=== PATIENT | female | born 1980 | race Caucasian/White ===

== ENCOUNTER → 2020-02-13 10:27 | Outpatient (CLI) | payer OTHER, SELFPAY ==
--- NOTE | ~2020-02-13 | MM_ITS ---
EXAMINATION: MM screening laura BI w andreea HISTORY: Screening mammogram TECHNIQUE: Craniocaudal and mediolateral oblique 3-D tomosynthesis images were obtained and synthetic 2-D images were generated. CAD analysis was submitted and interpreted. COMPARISON: No prior mammogram is available for comparison at this institution. BREAST PARENCHYMAL COMPOSITION: There are scattered areas of fibroglandular density. FINDINGS: There is no evidence of suspicious mass, calcification, or architectural distortion to sugg est malignancy in either breast. There has been no suspicious interval change. IMPRESSION: 1. No mammographic evidence of malignancy. 2. Recommend routine screening mammography in one year. BI-RADS Category 1: Negative Reviewed, dictated and finalized at location A.
== END ==
PROVIDERS: Visit Provider Nurse Practitioner
DX: Z12.31 Encounter for screening mammogram for malignant neoplasm of breast (principal)
CPT/HCPCS: 77063; 77067

== ENCOUNTER → 2021-02-16 17:18 | Outpatient (CLI) | payer OTHER, SELFPAY ==
--- NOTE | ~2021-02-16 | MM_ITS ---
EXAMINATION: MM screening laura BI w andreea HISTORY: Screening mammogram TECHNIQUE: Craniocaudal and mediolateral oblique 3-D tomosynthesis images were obtained and synthetic 2-D images were generated. CAD analysis was submitted and interpreted. COMPARISON: 02/13/2020 BREAST PARENCHYMAL COMPOSITION: There are scattered areas of fibroglandular density. FINDINGS: RIGHT BREAST: There is focal asymmetry in the middle third of the upper outer quadrant of the breast. LEFT BREAST: There is no evidence of suspicious mass, calcification, or architectural distortion to s uggest malignancy. There has been no significant interval change. IMPRESSION: 1. Focal asymmetry of the right breast. 2. Additional mammographic views and possible breast ultrasound are recommended. BI-RADS Category 0: Incomplete: Needs additional imaging evaluation. Reviewed, dictated and finalized at location A. IMPRESSION: 1. Focal asymmetry of the right breast. 2. Additional mammographic views and possible breast ultrasound are recommended . BI-RADS Category 0: Incomplete: Needs additional imaging evaluation.
== END ==
PROVIDERS: Visit Provider Nurse Practitioner
DX: Z12.31 Encounter for screening mammogram for malignant neoplasm of breast (principal); R92.8 Other abnormal and inconclusive findings on diagnostic imaging of breast
CPT/HCPCS: 77063; 77067

== ENCOUNTER → 2021-05-08 08:42 | Outpatient (CLI) | payer OTHER, SELFPAY ==
--- NOTE | ~2021-05-08 | MMUS_ITS ---
EXAMINATION: MM diagnostic laura RT w andreea, US breast RT limited HISTORY: Focal asymmetry in middle third of upper outer right breast reported on 02/16/2021 screening mammogram TECHNIQUE: Additional 3-D tomosynthesis images of the right breast were performed and synthetic 2-D i mages were generated. CAD analysis was submitted and interpreted. High resolution upper outer quadran t right breast ultrasound was performed. COMPARISON: 02/16/2021 and 02/13/2020 bilateral screening mammogram examinations BREAST PARENCHYMAL COMPOSITION: There are scattered areas of fibroglandular density. FINDINGS: MAMMOGRAPHIC FINDINGS: There is an approximately 8 x 18 mm area of nonspecific asymmetric density in the upper outer quadran t of the right breast. ULTRASOUND: 10:00 5 cm from nipple: Parallel circumscribed 7.6 x 3.3 x 6.1 mm hypoechoic area without internal va scularity or posterior shadowing, likely benign. IMPRESSION: 1. Probably benign asymmetry, upper outer right breast 2. 6 month diagnostic right mammogram and right breast ultrasound follow-up are recommended BI-RADS category 3, probably benign findings. Reviewed, dictated and finalized at location A. IGURATION MANAGEMENT ADMINISTRATOR IMPRESSION: 1. Probably benign asymmetry, upper outer right breast 2. 6 month diagnostic right mammogram and right breast ultrasound follow-up are recommended BI-RADS category 3, probably benign findings.
== END ==
PROVIDERS: PCP Family Medicine; Visit Provider Obstetrics & Gynecology Gynecology
DX: R92.8 Other abnormal and inconclusive findings on diagnostic imaging of breast (principal)
CPT/HCPCS: 76642; 77061; 77065; G0279

== ENCOUNTER → 2021-12-15 09:19 | Outpatient (CLI) | payer OTHER, SELFPAY ==
--- NOTE | ~2021-12-15 | MMUS_ITS ---
EXAMINATION: MM diagnostic laura RT w andreea, US breast RT limited HISTORY: Six-month follow-up of likely benign finding at 10:00 5 cm from nipple TECHNIQUE: Full field and spot ML, MLO and CC 3-D tomosynthesis images of the right breast were perfo rmed and synthetic 2-D images were generated. CAD analysis was submitted and interpreted. High resolu tion upper outer quadrant right breast ultrasound was performed. COMPARISON: 05/08/2021 diagnostic right mammogram and limited right breast ultrasound 02/16/2021 bilateral screening mammogram BREAST PARENCHYMAL COMPOSITION: There are scattered areas of fibroglandular density. FINDINGS: MAMMOGRAPHIC FINDINGS: Stable mild asymmetry is again noted posteriorly in the upper outer right breast, stable in appearanc e since 02/16/2021 and 02/13/2020 ULTRASOUND: 10:00 5 cm from nipple: Parallel circumscribed hypoechoic lesion measuring 3.4 x 7.6 x 5.9 mm, with t hrough transmission, no internal vascularity. The sonographic features suggest benign process. This i s stable in size and sonographic features since 05/08/2021. IMPRESSION: 1. Benign finding 2. Routine annual mammographic screening is recommended BI-RADS Category 2: Benign finding(s). Reviewed, dictated and finalized at location A. IMPRESSION: 1. Benign finding 2. Routine annual mammographic screening is recommended BI-RADS Category 2: Benign finding(s).
== END ==
PROVIDERS: PCP Obstetrics & Gynecology Gynecology; Visit Provider Obstetrics & Gynecology Gynecology
DX: N64.59 Other signs and symptoms in breast (principal)
CPT/HCPCS: 76642; 77061; 77065; G0279

== ENCOUNTER → 2022-06-18 13:13 | Outpatient (CLI) | payer OTHER, SELFPAY ==
--- NOTE | ~2022-06-18 | MM_ITS ---
EXAMINATION: MM screening laura BI w andreea HISTORY: Screening TECHNIQUE: Craniocaudal and mediolateral oblique 3-D tomosynthesis images were obtained and synthetic 2-D images were generated. CAD analysis was submitted and interpreted. COMPARISON: Comparison to multiple prior studies sequentially, with oldest reviewed study dated 02/12. BREAST PARENCHYMAL COMPOSITION: FINDINGS: No significant change to mass in the upper outer quadrant of the right breast previously ch aracterized as benign by prior ultrasound. This mass is stable dating back to 02/16/2021. The left harvey ast is stable without evidence for malignancy. IMPRESSION: 1. Stable bilateral mammogram without evidence for malignancy. 2. Recommend routine screening mammography in one year. BI-RADS Category 2: Benign finding(s). Reviewed, dictated and finalized at location A. LLENCE CONSULTANT
== END ==
PROVIDERS: Visit Provider Nurse Practitioner
DX: Z12.31 Encounter for screening mammogram for malignant neoplasm of breast (principal)
CPT/HCPCS: 77063; 77067

== ENCOUNTER 2022-08-13 15:21 | Emergency (ER) | payer OTHER, SELFPAY ==
[2022-08-13 15:31] VITALS: BP 138/57; PULSE 83; RESP 16; TEMP 36.8; O2SAT 100
--- NOTE | 2022-08-13 15:52 | ED.SKABFB ---
HPI - Skin/Abscess/Foreign Bdy General Chief complaint: Skin/Abscess/Foreign Body Stated complaint: Spots that are spreading Time Seen by Provider: 08/13/22 15:52 Source: patient Mode of arrival: ambulatory Limitations: no limitations History of Present Illness HPI narrative: 41-year-old female presented for complaint of spreading rash over the last 3 weeks. She states it started on the left lower leg. She endorses scattered red round lesions across her torso over the last few weeks. Denies pain, itching, plaque/flaking or drainage. Used lotrimin without relief. She denies any family members with similar symptoms. She denies changes to lotion, soap, detergent etc.. She denies lip, tongue, or throat swelling, itching or shortness of breath, wheezing. Related Data Home Medications Medication Instructions Recorded Confirmed alprazolam 0.25 mg tablet 0.25 mg PO DAILY 08/13/22 08/13/22 bupropion HCl 300 mg 24 hr tablet, 300 mg PO DAILY 08/13/22 08/13/22 extended release ferrous sulfate 325 mg (65 mg 325 mg PO DAILY 08/13/22 08/13/22 iron) tablet (FeroSul) metformin 500 mg tablet,extended 500 mg PO DAILY 08/13/22 08/13/22 release 24 hr Allergies Allergy/AdvReac Type Severity Reaction Status Date / Time doxycycline Allergy Rash Verified 08/13/22 15:40 Tetracyclines Allergy Hives Verified 08/13/22 15:39 Review of Systems Review of Systems: CONSTITUTIONAL: Denies body aches, fever, chills, or sweats. EYES: Denies visual changes, redness, or discharge. ENT: Denies rhinorrhea, congestion CARDIOVASCULAR: Denies chest pain, palpitations, or edema. RESPIRATORY: Denies cough or dyspnea. GASTROINTESTINAL: Denies abdominal pain, nausea, vomiting, or diarrhea. SKIN: per HPI MUSCULOSKELETAL: Denies back pain, joint pain, or myalgia. NEUROLOGIC: Denies headache, numbness, tingling, or weakness. [facility] Surgical History Surgical History (Updated 08/13/22 @ 16:07 by Zaria Encarnacion APRN) H/O gastric bypass Comments At time of signature, I have reviewed and agree with nursing past medical, surgical, social and family history unless otherwise noted. Please see nursing chart for further information. There is no relevant family history pertinent to the presenting complaint Exam Narrative: GENERAL: Well-appearing HEAD: Normocephalic, atraumatic. EYES: conjunctivae clear, and EOMI. ENT: Mucous membranes moist. Oropharynx without edema, erythema or lesions. NECK: Supple. No lymphadenopathy CHEST: Clear to auscultation. HEART: Regular rate and rhythm. SKIN: Warm, dry. Scattered circular erythematous flaky lesions to torso, legs and arms; c/w tinea corporis, largest on Left lower leg 3cm circular erythematous flaky lesion NEURO: Alert and oriented x3. Course Course Emergency Course: Patient is aware of diagnosis, understands and agrees to treatment plan. Anticipatory guidance given. Patient agrees to follow-up as directed and is aware of reasons to seek care at the emergency department. Portions of this record may have been created with voice recognition software Level of Care: Express Care Visit Vital Signs Vital signs: Vital Signs Temperature 98.3 F 08/13/22 15:31 Pulse Rate 83 08/13/22 15:31 Respiratory Rate 16 08/13/22 15:31 Blood Pressure 138/57 L 08/13/22 15:31 Pulse Oximetry 100 08/13/22 15:31 Temperature 98.3 F 08/13/22 15:31 Pulse Rate 83 08/13/22 15:31 Respiratory Rate 16 08/13/22 15:31 Blood Pressure 138/57 L 08/13/22 15:31 Pulse Oximetry 100 08/13/22 15:31 Reviewed MDM - Skin/Abscess/Foreign Bdy MDM Narrative Medical decision making narrative: Advised supportive measures and signs/symptoms to go to the ER. Pt is appropriate for outpt treatment and f/u. Instructed patient to go to nearest ER immediately for any worsening symptoms including but not limited to: spreading rash, pain, chest pain, trouble breathing, or any symptoms concerning t
== END 2022-08-13 16:05 | disposition home or self-care (01) ==
PROVIDERS: Emergency Provider Nurse Practitioner Family
DX: B35.4 Tinea corporis (principal); Z98.84 Bariatric surgery status
CPT/HCPCS: 99203; G0463

== ENCOUNTER 2024-01-23 14:20 | Outpatient (CLI) | payer OTHER, SELFPAY ==
--- NOTE | ~2024-01-23 | MM_ITS ---
EXAMINATION: MM screening laura BI w andreea HISTORY: Screening TECHNIQUE: Craniocaudal and mediolateral oblique 3-D tomosynthesis images were obtained and synthetic 2-D images were generated. CAD analysis was submitted and interpreted. COMPARISON: Comparison to multiple prior studies sequentially, with oldest reviewed study dated 02/12. BREAST PARENCHYMAL COMPOSITION: Not dense: There are scattered areas of fibroglandular density. FINDINGS: There is no evidence of suspicious mass, calcification, or architectural distortion to sugg est malignancy in either breast. There has been no suspicious interval change. IMPRESSION: 1. No mammographic evidence of malignancy. 2. Recommend routine screening mammography in one year. BI-RADS Category 1: Negative Reviewed, dictated and finalized at location B.
== END 2024-01-23 14:21 ==
LOC: MICIMG 14:22
PROVIDERS: PCP Obstetrics & Gynecology Gynecology; Visit Provider Obstetrics & Gynecology Gynecology
DX: Z12.31 Encounter for screening mammogram for malignant neoplasm of breast (principal)
CPT/HCPCS: 77063; 77067

== ENCOUNTER 2025-01-28 12:59 | Outpatient (CLI) | payer OTHER, SELFPAY ==
--- NOTE | ~2025-01-28 | MM_ITS ---
EXAMINATION: MM screening laura BI w andreea HISTORY: Screening TECHNIQUE: Craniocaudal and mediolateral oblique 3-D tomosynthesis images were obtained and synthetic 2-D images were generated. CAD analysis was submitted and interpreted. COMPARISON: Comparison to multiple prior studies sequentially, with oldest reviewed study dated 02/12. BREAST PARENCHYMAL COMPOSITION: There are scattered areas of fibroglandular density. FINDINGS: There is no evidence of suspicious mass, calcification, or architectural distortion to sug gest malignancy in either breast. IMPRESSION: 1. No mammographic evidence of malignancy. 2. Recommend routine screening mammography in one year. BI-RADS Category 1: Negative Reviewed, dictated and finalized at location B.
== END 2025-01-28 13:00 | disposition home or self-care (01) ==
LOC: MICIMG 13:01
PROVIDERS: PCP Obstetrics & Gynecology Gynecology; Visit Provider Obstetrics & Gynecology Gynecology
DX: Z12.31 Encounter for screening mammogram for malignant neoplasm of breast (principal)
CPT/HCPCS: 77063; 77067

== ENCOUNTER 2025-02-18 01:04 | Day surgery (SDC) | payer OTHER, SELFPAY ==
[2025-02-07 13:57] VITALS: BMI 40.8
--- NOTE | 2025-02-07 14:04 | PC.NURSE ---
Report to the Outpatient Waiting Room, entrance under the green pavilion located off [facility], at time _0615_ on date _[id number]_. Planned Procedure Time: _0815_.? Time changes happen often and if your time is changed the preop area will call you the afternoon before. - You and your visitor will be asked to self-screen and do not enter if you have any COVID symptoms. Please call surgeon if you need to reschedule. - A mask is optional within the hospital at this time. Patients may have clear liquids (water, carbonated beverages, clear teas, apple juice) until 3 hours prior to surgery with a maximum of 20 ounces. - No food from midnight until time of surgery and no smoking, or chewing tobacco (or any form of nicotine). No chewing gum, candy or mints. Take only the following medications with a SIP of water on the morning of surgery: __Bupropion DO NOT STOP ANY OF YOUR OTHER PRESCRIPTION MEDICATIONS PRIOR TO SURGERY EXCEPT THE FOLLOWING Hold all vitamins and supplements for 3 days per anesthesiologist. Medications to discontinue per physician ___Abdullahi (patient doesn't know dose)____Hold for 10 days. Date to take last dose Please no make-up, nail hebrew, hairspray, perfume, deodorant, or body powder the day of surgery.? No jewelry (including any body piercings) or valuables the day of surgery, leave them at home.? Please take a shower or bath the night before, or the morning of, surgery with an antibacterial soap.? Wear comfortable, loose fitting clothing.? - Jewelry must be removed prior to entering the operating room.? Rings and piercings that are not removed may be cut off. - The hospital will not accept responsibility for valuables.? - Please leave all valuables, including medications, at home the day of surgery. If you are going home after surgery, a licensed gas truck driver must drive you home.? - NO public transportation without another adult if you receive anesthesia. - We recommend that an adult stay with you for 24 hours following discharge. - We also recommend that you do not drive, make important decision, drink alcoholic beverages, or take any drugs that were not prescribed by your health care provider for at least 24 hours after your discharge time. Follow any additional instructions given to you from your surgeon. Telephone instructions given to __Apolinarie__and asked if any additional questions and then verbalized understanding. Patient advised to call surgeon office or pre surgery nurse liaison [phone] if any additional questions.
--- OUTSIDE RECORDS SUMMARY | 2025-02-18 01:08 | XMS_ITS | Encounter Summary ---
Author Organization [facility] Address [address] [place] [address] Care Team Providers Care Senior Officer Name Role Phone Cherry Cornejo MD Primary Care Provider [phone] Encounter Details Date Type Department Care Team (Latest Contact Info) Description 01/24/2025 Results Follow-Up [facility] [employer] [place] [address] [facility] [address] Reshma Dunbar, ANP [address] [facility] [address] [place] [address] HEMOGLOBIN A1C, LIPID PANEL, COMPREHENSIVE METABOLIC PANEL, Additional followed-up results: 2 Social History Tobacco Use Types Packs/Day Years Used Date Smoking Tobacco: Never Smokeless Tobacco: Never Alcohol Use Standard Drinks/Week Comments Yes 0 (1 standard drink = 0.6 oz pur e alcohol) rare Comments No Sex and Gender Information Value Date Recorded Sex Assigned at Not on file Legal Sex Female 11:44 AM LINUX SERVER ADMINISTRATOR Gender Identity Not on file Sexual Orientation Not on file documented as of this encounter Miscellaneous Notes * Result Encounter Note - Barbara Keith RN - 01/24/2025 8:53 AM CDT Left voicemail for patient to call back regarding lab results. * Result Encounter Note - Reshma Dunbar ANP - 01/24/2025 7:59 AM CDT Contact patient regarding result. Blood sugar control is still in reasonable range. Cholesterol increased a lot. Resume all oral medications as planned. Use up ozempic prescription and change with next injection to Mounjaro 5 mg weekly. Watch for SE ofnausea, vomiting, abd pain, constipation. Please verify pharmacy if needs changed for 3 month supply. FU with me again in 3 months. No labs needed then. documented in this encounter Plan of Treatment Not on file documented as of this encounter Visit Diagnoses Not on filedocumented in this encounter Additional Health Concerns Assessment Noted Time PHQ-9 Depression Total Score: 3 01/23/20 25 9:00 AM CDT documented as of this encounter Care Teams Senior Officer Relationship Specialty Start Date End Date Cherry Cornejo MD [address] [place] [address] [place] [address] PCP - General Internal Medicine 12/13/23 documented as of this encounter
--- OUTSIDE RECORDS SUMMARY | 2025-02-18 01:08 | XMS_ITS | Clinical Summary ---
Author Organization [facility] Address [address] [place] [address] Phone Care Team Providers Care Pipe Production Worker Name Role Phone Allen Patten MD Primary Care Provider [phone] Social History Tobacco Use Types Packs/Day Years Used Date Smoking Tobacco: Never Assessed Comments Unknown Sex and Gender Information Value Date Recorded Sex Assigned at Not on file Legal Sex Female 8:12 AM CDT Gender Identity Not on file Sexual Orientation Not on file Plan of Treatment Health Maintenance Due Date Last Done Comments Hepatitis C Virus (HCV) Screening 1980 TdaP Immunization 1980 Hepatitis B Immunization (1 of 3 - 19+ 3-dose series) 10/13/1998 Pap Smear 10/13/2000 Human Papillomavirus (HPV) Immunization (1 - 3-dose SCDM series) 10/13/2006 Cervical Cancer Screening (CCS) 10/13/2009 HPV/Cotest 10/13/2009 SARS-COV-2 Immunization ( season) 2024 05/10/2021, 09/02/2020 Cologuard 10/13/2024 Colonoscopy 10/13/2024 Colorectal Cancer Screening 10/13/2024 Immunochemical Fecal Occult Blood 10/13/2024 Influenza Immunization (#1) 2025 03/31/2018 Respiratory Syncytial Virus (RSV) Immunization (Adult) (1 - 1-dose 75+ series) 10/13/2054 Meningococcal Immunization (ACWY) Aged Out No longer eligible b ased on patient's age to complete this topic Pneumococcal Immunization Combined Aged Out No longer eligible b ased on patient's age to complete this topic Rotavirus Immunization Aged Out No lo nger eligible based on patient's age to complete this topic Insurance [facility] Care Teams Pipe Production Worker Relationship Specialty Start Date End Date Allen Patten MD [address] [place] [id number] PCP - General Emergency Medicine 03/16/18
--- OUTSIDE RECORDS SUMMARY | 2025-02-18 01:08 | XMS_ITS ---
Author Organization Unknown ENCOUNTERS Encounter Performer Location Date Diagnosis Diagnosis Status Outpatient [address] [id number] *Note: Encounters from your own facility or health system may be excluded. Allergies, Adverse Reactions, Alerts Allergen Type Severity Identification Date Tetracyclines drug allergy 3 20220813 doxycycline drug allergy 3 20220813 Medications Name Date Quantity Days Supplied [facility] Number
[2025-02-18] MEDS: ACETAMINOPHEN 500 MG TABLET 1000 MG PO (06:46)
[2025-02-18 06:55] VITALS: BP 112/52; PULSE 71; RESP 20; TEMP 36.7; O2SAT 100
--- NOTE | 2025-02-18 07:19 | WPDANESEPPF ---
Anes - Initial Pre Proc Eval Procedure: Operation Date: 02/18/25 08:15 Proposed Procedures p Hysteroscopy Dilation and Curettage - Gilda Schneider MD Date/Time: 02/18/25 07:19 Surgeon: Gilda Schneider MD Pre Op Diagnosis: Menorrhagia Patient Data Age: 44 Gender: F Height: 1.6 m Weight: 104.5 kg Allergies Allergy/AdvReac Type Severity Reaction Status Date / Time doxycycline Allergy Rash Verified 02/18/25 06:44 Tetracyclines Allergy Hives Verified 02/18/25 06:44 Home Medications ?Medication ?Instructions ?Recorded ?Confirmed ?Type alprazolam 0.25 mg tablet 0.25 mg PO DAILY 08/13/22 02/18/25 History bupropion HCl 300 mg 24 hr tablet, 300 mg PO DAILY 08/13/22 02/18/25 History extended release ferrous sulfate 325 mg (65 mg 325 mg PO DAILY 08/13/22 02/18/25 History iron) tablet (FeroSul) metformin 500 mg tablet,extended 500 mg PO DAILY 08/13/22 02/18/25 History release 24 hr atorvastatin 20 mg tablet 20 mg PO HS 02/07/25 02/18/25 History multivitamin (Daily Multi-Vitamin 1 tablet PO DAILY 02/07/25 02/18/25 History tablet) Laboratory Tests 02/18/25 07:06 POC Capillary Glucose 105 mg/dl (65-105) Patient hx anesthesia problems: none Family hx anesthesia problems: none Results Review: All pre-operative results and documents have been reviewed as part of the pre-operative evaluation. [facility] Surgical History Surgical History H/O gastric bypass Social History Social History Smoking status: Never smoker Living arrangements: with family Spiritual care concerns: No Anes - Eval Final PreProcedure Day of Procedure 02/18/25 07:19 Patient weight: morbidly obese Heart: regular rate and rhythm Lungs: clear to auscultation Airway: Mallampati scale class II Neurological: alert and oriented Last oral intake: >/= 8 hours ASA classification: III Emergent: no Anesthetic plan: proceed Anesthesia type and monitoring: general GIVS and standard monitoring Results Review: All pre-operative results and documents have been reviewed as part of the pre-operative evaluation. Informed Consent: The patient's anesthetic plan and its attendant risks and benefits were discussed with the patient/family/POA. Questions were solicited and answers provided to the satisfaction of the patient/family/POA.
--- NOTE | 2025-02-18 07:30 | WPDHPUPDATE1 ---
History and Physical Update Update Date/Time: 02/18/25 07:30 History and Physical has been reviewed, including an updated exam of the patient. There are NO changes in the patient's condition. Risks, benefits, and alternatives have been discussed and questions answered. Patient agrees to proceed with procedure.
--- NOTE | 2025-02-18 07:30 | PM.HPGS ---
History of Present Illness History of Present Illness Consent: Risks, benefits, and alternatives have been discussed and questions answered. Patient agrees to proceed with procedure. Chief complaint: Menorrhagia Narrative: Khanh Winston is a 44 year old female for with irregular and prolonged bleeding. Recommended to undergo D&C hysteroscopy to further evaluate. Risks of infection, bleeding, perforation, and possible pathology reviewed patient voices understanding and agrees to proceed. Review of Systems Review of Systems: not repeated day of surgery; patient states no changes in status PMFSH Past Medical History Medical History (Updated 02/18/25 @ 07:32 by Gilda Schneider MD) Borderline diabetes History of depression Surgical History Surgical History (Updated 02/18/25 @ 07:32 by Gilda Schneider MD) History of x2 Status post cholecystectomy H/O gastric bypass 2018 gastric sleeve Social History Social History Smoking status: Never smoker Living arrangements: with family Spiritual care concerns: No Meds Home Medications and Allergies Home Medications ?Medication ?Instructions ?Recorded ?Confirmed ?Type alprazolam 0.25 mg tablet 0.25 mg PO DAILY 08/13/22 02/18/25 History bupropion HCl 300 mg 24 hr tablet, 300 mg PO DAILY 08/13/22 02/18/25 History extended release ferrous sulfate 325 mg (65 mg 325 mg PO DAILY 08/13/22 02/18/25 History iron) tablet (FeroSul) metformin 500 mg tablet,extended 500 mg PO DAILY 08/13/22 02/18/25 History release 24 hr atorvastatin 20 mg tablet 20 mg PO HS 02/07/25 02/18/25 History multivitamin (Daily Multi-Vitamin 1 tablet PO DAILY 02/07/25 02/18/25 History tablet) Allergies Allergy/AdvReac Type Severity Reaction Status Date / Time doxycycline Allergy Rash Verified 02/18/25 06:44 Tetracyclines Allergy Hives Verified 02/18/25 06:44 Exam Const: General: obese ( BMI 41) Orientation/consciousness: patient oriented x3 Resp: Effort & Inspection: normal respiratory effort Auscultation: clear to auscultation bilaterally Cardio: Rate: regular rate Rhythm: regular rhythm GI: GI Palp: Yes Soft to palpation, No Tenderness to palpation present (GI) and No Palpable mass present : External Female Exam: normal external appearance Speculum Exam - Vagina: normal appearance of the vagina and normal vaginal discharge Speculum Exam - Cervix: normal appearance of the cervix Bimanual exam- vagina & uterus: uterine size normal and consistency normal Bimanual Exam- Adnexa, other: normal adnexae and No adnexal tenderness Neuro: General: patient oriented x3 Assessment and Plan Assessment and plan (1) Menorrhagia: Code(s): N92.0 - Excessive and frequent menstruation with regular cycle Status: Acute Assessment and Plan: plan to proceed with D&C hysteroscopy
[2025-02-18 07:52] LABS: BEDSIDEPREGUCG Negative (Negative)
[2025-02-18] MEDS: LACTATED RINGERS 1,000 ML 30 ML IV CONT (08:10)
--- NOTE | 2025-02-18 08:31 | S_PTH ---
PATIENT: Khanh Winston LOC: [facility] U#:[id number] AGE/SX: 44/F ROOM: RE02/18/[address]: Gilda Schneider MD : 1980 BED: DIS: 02/18/2025 SPEC #: [id number] RECD: 02/18/25 10:32 STATUS: FABIANA REQ #: [id number] ARAM: 02/18/25 08:[address]: Gilda Schneider DEPT: [facility] RECD BY: Hailey Zimmerman ENTERED: 02/18/25 10:35 SP TYPE: Surgical OTHR DR: ROTOR BALANCER PHYSICIAN Tissues: A - Endometrial Curettings Procedures: Hematoxylin and Eosin Stain Gross and Microscopic Level 4
[2025-02-18] MEDS: KETOROLAC 30 MG/ML VIAL (*BKC) IV PUSH (08:33)
--- NOTE | 2025-02-18 08:35 | P.OP_ITS ---
Procedure Note - Detailed Date of Procedure 02/18/25 Pre-op Diagnosis Menorrhagia Post-op Diagnosis Same Procedure Performed D&C hysteroscopy Surgeon Gilda Schneider MD Anesthesia MAC Findings uterus sounds to 11cm and appears grossly normal Description of Procedure The patient is taken to the operating room and placed under anesthesia in the dorsal lithotomy position. She was prepped and draped in the usual sterile fashion. [place] speculum was placed in the vagina and the cervix was grasped on the anterior lip with a tenaculum. The uterus sounded to 11cm. The diagnostic hysteroscope was placed no abnormalities are noted. The hysteroscope was removed. The sharp curette was used to grasp endometrium a good uterine cry was noted in all areas. All instruments were then removed. Sponge, needle, and instrument counts are correct per the OR staff. The patient was awakened from anesthesia and taken to recovery in stable condition. Estimated Blood Loss 5 Drains No Packing No Pathology Yes ( Endometrial curettings) Complications No immediate complications Condition Stable Disposition PACU
[2025-02-18 08:37] VITALS: BP 105/46; PULSE 74; RESP 14; O2SAT 100
[2025-02-18 09:00] VITALS: BP 115/54; PULSE 63; RESP 14
[2025-02-18] MEDS: oxyCODONE HCL (*CRX) 5 MG TAB IR PO (09:03)
[2025-02-18 09:22] VITALS: BP 121/56; PULSE 63; RESP 16
== END 2025-02-18 09:29 | disposition home or self-care (01) ==
PROVIDERS: Visit Provider Obstetrics & Gynecology Gynecology
PROC: 0U5B8ZZ Destruction of Endometrium, Via Natural or Artificial Opening Endoscopic (ICD-10-PCS; CPT 58563; principal; 2025-02-18 08:15)
DX: N92.0 Excessive and frequent menstruation with regular cycle (principal); F32.A Depression, unspecified; E66.01 Morbid (severe) obesity due to excess calories; Z68.41 Body mass index [BMI] 40.0-44.9, adult; Z79.84 Long term (current) use of oral hypoglycemic drugs; Z98.890 Other specified postprocedural states; Z90.49 Acquired absence of other specified parts of digestive tract; Z98.84 Bariatric surgery status
CPT/HCPCS: 58558; 82948; 88305; A9270; J1100; J1885; J2003; J2250; J2405; J2704; J3010; J7120

== ENCOUNTER 2025-03-23 09:04 | Outpatient (CLI) | payer OTHER, SELFPAY ==
[2025-03-23 09:40] LABS: Hematocrit 39.6 % (37.0-47.0); Hemoglobin 12.5 g/dL (12.0-15.0)
[2025-03-23 10:03] LABS: Anion Gap 4 mmol/L (4-12); Blood Urea Nitrogen 11 mg/dL (7-17); Calcium 8.7 mg/dL (8.4-10.2); Carbon Dioxide 24 mmol/L (22-30); Chloride 107 mmol/L (98-107); Estimated Glomerular Filt Rate > 60; Glucose 90 mg/dL (65-110); Potassium 4.3 mmol/L (3.4-5.0); Sodium 135 mmol/L (137-145)
== END 2025-03-23 09:05 | disposition home or self-care (01) ==
LOC: ANHLAB 09:06
PROVIDERS: Visit Provider Anesthesiology
DX: D64.9 Anemia, unspecified (principal); E11.9 Type 2 diabetes mellitus without complications
CPT/HCPCS: 36415; 80048; 85014; 85018

== ENCOUNTER 2025-04-01 01:43 | Day surgery (SDC) | payer OTHER, SELFPAY ==
[2025-03-19 17:41] VITALS: BMI 39.0
--- NOTE | 2025-03-19 17:52 | PC.NURSE ---
[facility] has started construction of its new state of the art ER which will open Spring 2026. With this, we anticipate parking may be a challenge for some our surgical patients and families. Parking spaces are limited but are available for all Surgical, obstetrics, and ER patients sharing this lot. If you arrive and find you are having a hard time finding a parking space, please note that we understand the challenges, please drive around the hospital and park near Hospital Entrance 1. When you enter this entrance, you can ask a volunteer to direct or take you back to the surgical waiting area to check in. We appreciate everyone?s understanding of these expected challenges while we build for your future. Report to the Outpatient Waiting Room, entrance under the green pavilion located off [address], at time _0745_ on date __04/01/25_. Planned Procedure Time: _0945__.? Time changes happen often and if your time is changed the preop area will call you the afternoon before. - You and your visitor will be asked to self-screen and do not enter if you have any COVID symptoms. Please call surgeon if you need to reschedule. - A mask is optional within the hospital at this time. Patients may have clear liquids (water, carbonated beverages, clear teas, apple juice) until 3 hours prior to surgery with a maximum of 20 ounces. - No food from midnight until time of surgery and no smoking, or chewing tobacco (or any form of nicotine). No chewing gum, candy or mints. Take only the following medications with a SIP of water on the morning of surgery: _bupropion__ DO NOT STOP ANY OF YOUR OTHER PRESCRIPTION MEDICATIONS PRIOR TO SURGERY EXCEPT THE FOLLOWING Hold all vitamins and supplements for 3 days per anesthesiologist. Medications to discontinue per physician _HOLD metformin AM of surgery; ask surgeon when to stop taking Mounjaro (uses for DM and wt.loss)__ Please no make-up, nail khmer, hairspray, perfume, deodorant, or body powder the day of surgery.? No jewelry (including any body piercings) or valuables the day of surgery, leave them at home.? Please take a shower or bath the night before, or the morning of, surgery with an antibacterial soap.? Wear comfortable, loose fitting clothing.? - Jewelry must be removed prior to entering the operating room.? Rings and piercings that are not removed may be cut off. - The hospital will not accept responsibility for valuables.? - Please leave all valuables, including medications, at home the day of surgery. If you are going home after surgery, a licensed combine driver must drive you home.? - NO public transportation without another adult if you receive anesthesia. - We recommend that an adult stay with you for 24 hours following discharge. - We also recommend that you do not drive, make important decision, drink alcoholic beverages, or take any drugs that were not prescribed by your health care provider for at least 24 hours after your discharge time. Follow any additional instructions given to you from your surgeon. Telephone instructions given to _Khanh__and asked if any additional questions and then verbalized understanding. Patient advised to call surgeon office or pre surgery nurse liaison [phone] if any additional questions.
--- OUTSIDE RECORDS SUMMARY | 2025-04-01 01:46 | XMS_ITS | Clinical Summary ---
Author Organization [facility] Address [address] [place] [address] Phone Care Team Providers Care Senior Sales Representative Name Role Phone Allen Patten MD Primary Care Provider [phone] Social History Tobacco Use Types Packs/Day Years [...] Cervical Cancer Screening (CCS) 10/13/2009 HPV/Cotest 10/13/2009 Cologuard 10/13/2024 Colonoscopy 10/13/2024 Colorectal Cancer Screening 10/13/2024 Immunochemical Fecal Occult Blood 10/13/2024 Influenza Immunization (#1) 2025 03/31/2018 SARS-COV-2 Immunization ( season) 2025 05/10/2021, 09/02/2020 Respiratory Syncytial Virus (RSV) Immunization (Adult) (1 - 1-dose 75+ series) 10/13/2054 Meningococcal Immunization (ACWY) Aged Out No longer eligible b ased on patient's age to complete this topic Pneumococcal Immunization Combined Aged Out No longer eligible b ased on patient's age to complete this topic Rotavirus Immunization Aged Out No lo nger eligible based on patient's age to complete this topic Insurance [facility] Care Teams Senior Sales Representative Relationship Specialty Start Date End Date Allen Patten MD [address] [place] [id number] PCP - General Emergency Medicine 03/16/18
--- OUTSIDE RECORDS SUMMARY | 2025-04-01 01:46 | XMS_ITS | Clinical Summary ---
Author Organization [facility] [place] Address [address] [place] [address] Care Team Providers Care Market Risk Manager Name Role Phone Cherry Cornejo MD Primary Care Provider [phone] Allergies Active Allergy Reactions Criticality Noted Date Comments Doxycycline Hives High 11/15/2017 Iodinated Contrast Media Nausea and Vomiting Medium 07/27/2018 Nsaids (Non-Steroidal Anti-Inflammatory Drug) Other (See Comments) Low 06/22/2018 Ulcers since surgery S/P SLEEVE GASTRECTOMY Tetracycline Hives,Itching High 02/23/2018 Medications thiamine (VITAMIN B-1) 100 mg tablet Take 1 Tablet by mouth daily. Active multivitamin (DAILY-NURIS) tablet Take 1 Tablet by mouth daily. Active calcium carb/vit D3/minerals (CALCIUM-VITAMI N D ORAL) Take by mouth 2 times daily. Active cetirizine (ZyrTEC) 10 mg tabletIndicatio ns:Environmenta l allergies Take 1 Tablet (10 mg) by mouth daily. 30 Tablet 1 3 Active Additional Information Patient not taking.Reported on 01/22/2025 fluticasone propionate (FLONASE) 50 mcg/spray Levels, Suspension nasal inhalerIndicati ons:Environment al allergies Administer 2 Sprays in each nostril daily. 16 Gram 3 Active Additional Information Patient not taking.Reported on 01/22/2025 metFORMIN (GLUCOPHAGE XR) 500 mg Extended Release 24 hour tabletIndicatio ns:Type 2 diabetes mellitus without complication, without long-term current use of insulin Take 1 Tablet (500 mg) by mouth daily after supper. 90 Tablet 3 5 Active Additional Information Patient not taking.Reported on 01/22/2025 sertraline (Zoloft) 50 mg tablet Take 1 Tablet (50 mg) by mouth late in the day. 90 Tablet 5 Active buPROPion HCL (Wellbutrin XL) 300 mg Extended Release 24 hour tabletIndicatio ns:Situational depression Take 1 Tablet (300 mg) by mouth daily in the morning. 90 Tablet 5 Active ferrous sulfate (FeroSuL) 325 mg (65 mg iron) tabletIndicatio ns:Low ferritin level Take 1 Tablet (325 mg) by mouth daily. 90 Tablet 5 Active tirzepatide (Mounjaro) 5 mg/0.5 mL Pen InjectorIndicat ions:Type 2 diabetes mellitus without complication, without long-term current use of insulin Inject 0.5 mL (5 mg) by subcutaneous injection every 7 days. 2 mL 1 5 Active atorvastatin (Lipitor) 20 mg tabletIndicatio ns:Hyperlipidem ia with target LDL less than 70 Take 1 Tablet (20 mg) by mouth daily. 90 Tablet 5 Active Active Problems Problem Noted Date Diagnosed Date Generalized anxiety disorder 06/15/2023 History of bariatric surgery 01/06/2023 Overview (01/06/2023): 2018 Environmental allergies 01/06/2023 Hiatal hernia 05/27/2018 Situational depression 08/18/2017 Type 2 diabetes mellitus wit hout complication, without long-term current use of insulin 07/21/2017 Resolved Problems Problem Noted Date Diagnosed Date Resolved Date Morbid obesity 05/27/2018 10/27/2020 Morbid obesity with BMI of 50.0-59.9, adult 01/16/2018 06/23/2018 Encounters Date Type Department Care Team Description 02/26/2025 External Device Data [facility] ABSTRACTION Provider, Abstract 02/12/2025 External Device Data [facility] ABSTRACTION Provider, Abstract 01/24/2025 Orders Only [facility] [employer] [address] [place] [address] Reshma Dunbar ANP Type 2 diabetes mellitus without complication, without long-term current use of insulin (CMS/HCC) (Primary Dx); Hyperlipidemia with target LDL less than 70 01/24/2025 Results Follow-Up [facility] [place] [address] [place] [address] Reshma Dunbar ANP HEMOGLOBIN A1C, LIPID PANEL, COMPREHENSIVE METABOLIC PANEL, Additional followed-up results: 2 01/22/2025 7:30 AM CDT Office Visit [facility] [place] [address] [place] [id number] Reshma Dunbar ANP Type 2 diabetes mellitus without complication, without long-term current use of insulin (CMS/HCC) (Primary Dx); Morbid obesity with body mass index (BMI) of 40.0 or higher ([facility]); Generalized anxiety disorder; Situational stress; Situational depression; Low ferritin level; History of bariatric surgery 01/09/2025 External Device Data [facility] ABSTRACTION Provider, Abstract 01/08/2025 External Device Data [facility] ABSTRACTION Provider, Abstract from Last 3 Months Immunizations Immunization Administration Dates Next Due (ADACEL/BOOSTRIX)(10 YR UP) TDAP VACCINE, 0.5ML, IM 01/06/2023 (KRISS) COVID-19 VACCINE - EMERGENCY USE AUTHORIZATION, AD26,COV2S(PF) 0.5 ML IM SUSP 09/02/2020 (Pfizer Bivalent)(12 Yr Up) COVID-19 Vaccine - Emergency Use Authorization, MRNA, Lnp-S(Pf) 30 Mcg/0.3 Ml Susp 03/31/2023 INFLUENZA VACCINE QUADRIVALENT 6 MOS UP IM 04/02,03/31/2018 INFLUENZA VACCINE QUADRIVALE NT 6 MOS UP PF IM 03/11/2022,03/23/2021,04/02/2020 INFLUENZA VACCINE TRIVALENT SPLIT VIRUS, (6 MOS UP), 0.5ML (PF), IM 04/17/2024 Family History Medical History Relation Name Comments Other Brother 1/2 PTSD Healthy Daughter Bone Cancer Father Cancer Father Bone Unknown Maternal Grandfather Breast Cancer Maternal Grandmother Diabetes Maternal Grandmother Hypertension Maternal Grandmother Ovarian Cancer Maternal Grandmother Diabetes Mother Heart Disease Mother Liver Disease Mother Primary biliar y cirrhosis Other Mother PVC/lupus Unknown Paternal Grandfather Alcohol abuse Paternal Grandmother Emphysema Paternal Grandmother Other Paternal Grandmother ALCOHOL IC Respiratory Disease Paternal Grandmother Other Sister 1 ADDICT Other Sister 2 1/2 LUPUS Healthy Son Relation Name Status Comments Brother 1/2 Alive Daughter Alive Father Maternal Grandfather Maternal Grandmother Mother Alive Paternal Grandfather Paternal Grandmother Sister 1 Alive Sister 2 1/2 Alive Son Alive Social History Tobacco Use Types Packs/Day Years Used Date Smoking Tobacco: Never Smokeless Tobacco: Never Alcohol Use Standard Drinks/Week Comments Yes 0 (1 standard drink = 0.6 oz pur e alcohol) rare Comments No Sex and Gender Information Value Date Recorded Sex Assigned at Not on file Legal Sex Female 11:44 AM SPREAD CUTTER Gender Identity Not on file Sexual Orientation Not on file Last Filed Vital Signs Vital Sign Reading Time Taken Comments Blood Pressure 118/68 01/22/2025 7:18 AM CDT Pulse 94 01/22/2025 7:18 AM CDT Temperature 37 C (98.6 F) 01/22/2025 7:18 AM CDT Respiratory Rate 16 01/22/2025 7:18 AM CDT Oxygen Saturation 98% 01/22/2025 7:18 AM CDT Inhaled Oxygen Concentration - - Weight 105.2 kg (232 lb) 01/22/2025 7:18 AM CDT Height 157.5 cm (5' 2) 01/22/2025 7:18 AM CDT Body Mass Index 42.43 01/22/2025 7:18 AM CDT Plan of Treatment Upcoming Encounters Date Type Department Care Team (Late st Contact Info) Description 04/18/2025 7:30 AM CDT Office Visit [facility] [place] [address] [place] [place] [address] Reshma Dunbar, ANP [address] [place] [address] Health Maintenance Due Date Last Done Comments HEPATITIS B VACCINES (1 of 3 - 19+ 3-dose series) 10/13/1998 HPV/Cotest (21-29) 10/13/2000 HPV VACCINES (1 - 3-dose SCD M series) 10/13/2006 HPV/Cotest (30-65) 10/13/2009 BREAST CANCER SCREENING 05/08/2022 05/08/2021, 02/12 CERVICAL CANCER SCREENING 12/25/2022 PAP SMEAR 12/25/2022 12/26/2019 (Prev iously completed), 08/25/2016 (Previously completed) COLORECTAL SCREENING 10/13/2024 Colorectal Cancer Screening 10/13/2024 FIT-DNA Q 3 years 10/13/2024 FIT/FOBT Q 1 year 10/13/2024 Flex Sig/CT Colonography Q 5 years 10/13/2024 INFLUENZA VACCINE (#1) 2025 4, 03/11/2022, 03/23/2021, Additional history exists COVID-19 Vaccine (3 - 2024-2 6 season) 2025 03/31/2023, 09/02/2020 DIABETES ANNUAL FOOT EXAM 04/17/20252023, 01/06/2023, 01/06/2023 DIABETES HBA1C Q 6 MONTHS 07/25/20252024, 10/11/2024, 04/13/2024, Additional history exists DIABETES MICROALBUMIN ANNUAL SCREEN 10/11/2025 10/11/2024, 10/24/2023, 07/30/2022, Additional history exists LDL CHOLESTEROL ANNUAL 01/22/2026 5, 10/11/2024, 10/24/2023, Additional history exists DTAP/TDAP/TD VACCINES (2 - T d or Tdap) 01/06/2033 01/06/2023 Procedures Procedure Name Priority Date/Time Associated Diagnosis Comments TSH REFLEXIVE Routine 01/22/2025 8:01 AM CDT Type 2 diabetes mellitus without complication, without long-term current use of insulin (CMS/HCC) CBC WITH DIFFERENTIAL Routine 01/22/2025 8:01 AM CDT Type 2 diabetes mellitus without complication, without long-term current use of insulin (CMS/HCC) COMPREHENSIVE METABOLIC PANEL Routine 01/22/2025 8:01 AM CDT Type 2 diabetes mellitus without complication, without long-term current use of insulin (CMS/HCC) LIPID PANEL Routine 01/22/2025 8:01 AM CDT Type 2 diabetes mellitus without complication, without long-term current use of insulin (CMS/HCC) HEMOGLOBIN A1C Routine 01/22/2025 8:01 AM CDT Type 2 diabetes mellitus without complication, without long-term current use of insulin (CMS/[facility]) MICROALBUMIN/CREATININ E RATIO, RANDOM UR Routine 10/11/2024 7:56 AM CDT Type 2 diabetes mellitus without complication, without long-term current use of insulin ([facility]) MAMMO SCREENING BILAT Routine 05/08/2021 from Last 3 Months or Most Recently Relevant to Health Maintenance Results * TSH REFLEXIVE (01/22/2025 8:01 AM CDT) TSH 1.47 mIU/L [facility] Comment: Reference Range > or = 20 Years 0.40-4.50 Ranges First trimester 0.26-2.66 Second trimester 0.55-2.73 Third trimester 0.43-2.91 Test Performed at: [facility] [address] [place] [address] Ana Garcia MD Blood 01/22/2025 8:01 AM CDT 01/23/2025 4:42 AM CDT us Reshma Dunbar [facility] ORDERABLES Final R esult [facility] [phone] [facility] [address] [place] [address] * (ABNORMAL) CBC WITH DIFFERENTIAL (01/22/2025 8:01 AM CDT) WBC 4.7 3.8 - 10.8 Thousand/u L [facility] RBC 4.38 3.80 - 5.10 Million/uL [facility] HEMOGLOBIN 12.4 11.7 - 15.5 g/dL [facility] HEMATOCRIT 41.1 35.0 - 45.0 % [facility] MCV 93.8 80.0 - 100.0 fL [facility] MCH 28.3 27.0 - 33.0 pg [facility] MCHC 30.2(L) 32.0 - 36.0 g/dL [facility] Comment: For adults, a slight decrease in the calculated MCHC value (in the range of 30 to 32 g/dL) is most likely not clinically significant; however, it should be interpreted with caution in correlation with other red cell parameters and the patient's clinical condition. RDW 12.9 11.0 - 15.0 % [facility] PLATELETS 358 140 - 400 Thousand/u L [facility] MPV 9.8 7.5 - 12.5 fL [facility] NEUTROPHIL ABSOLUTE 3,243 1,500 - 7,800 cells/uL [facility] LYMPHOCYTE ABSOLUTE 1,025 850 - 3,900 cells/uL [facility] MONOCYTE ABSOLUTE 291 200 - 950 cells/uL [facility] EOSINOPHIL ABSOLUTE 89 15 - 500 cells/uL [facility] BASOPHILS ABSOLUTE 52 0 - 200 cells/uL [facility] NEUTROPHIL 69 % [facility] LYMPHOCYTES 21.8 % [facility] MONOCYTE 6.2 % [facility] EOSINOPHILS 1.9 % [facility] BASOPHILS 1.1 % [facility] Comment: Test Performed at: [facility] [address] [address] Ana Garcia MD Blood 01/22/2025 8:01 AM CDT 01/23/2025 4:42 AM CDT us Reshma Dunbar ANP HEMATOLOGY ORDERABLES Final Result [facility] [phone] [facility] [address] [facility] [place] [address] * (ABNORMAL) HEMOGLOBIN A1C (01/22/2025 8:01 AM CDT) HEMOGLOBIN A1C 5.8(H) <5.7 % [facility] Comment: For someone without known diabetes, a hemoglobin A1c value between 5.7% and 6.4% is consistent with prediabetes and should be confirmed with a follow-up test. For someone with known diabetes, a value <7% indicates that their diabetes is well controlled. A1c targets should be individualized based on duration of diabetes, age, comorbid conditions, and other considerations. This assay result is consistent with an increased risk of diabetes. Currently, no consensus exists regarding use of hemoglobin A1c for diagnosis of diabetes for children. ESTIMATED AVERAGE GLUCOSE (MG/DL) 120 mg/dL [facility] ESTIMATED AVERAGE GLUCOSE (MMOL/L) 6.6 mmol/L [facility] Comment: Test Performed at: [facility] [address] [place] [address] Ana Garcia MD Blood 01/22/2025 8:01 AM CDT 01/23/2025 4:42 AM CDT us Reshma Dunbar [facility] ORDERABLES Final R esult [facility] [phone] [facility] [address] [place] [address] * (ABNORMAL) LIPID PANEL (01/22/2025 8:01 AM CDT) CHOLESTEROL 200(H) <200 mg/dL [facility] HDL 68 > OR = 50 mg/dL [facility] TRIGLYCERIDE 47 <150 mg/dL [facility] LDL CALCULATED 118(H) mg/dL (calc) [facility] Comment: Reference range: <100 Desirable range <100 mg/dL for primary prevention; <70 mg/dL for patients with CHD or diabetic patients with > or = 2 CHD risk factors. LDL-C is now calculated using the Anna calculation, which is a validated novel method providing better accuracy than the Friedewald equation in the estimation of LDL-C. Bryce GUADARRAMA et al. KATLIN. 2013;310(19): 0223-7384 (http://education.CatchTheEye/faq/EMO713) CHOL/HDL RATIO 2.9 <5.0 (calc) [facility] NON-HDL CHOLESTEROL 132(H) <130 mg/dL (calc) [facility] Comment: For patients with diabetes plus 1 major ASCVD risk factor, treating to a non-HDL-C goal of <100 mg/dL (LDL-C of <70 mg/dL) is considered a therapeutic option. Test Performed at: [facility] [address] [place] [address] Ana Garcia MD Blood 01/22/2025 8:01 AM CDT 01/23/2025 4:42 AM CDT us Reshma Dunbar [facility]MI[facility] ORDERABLES Final R esult [facility] [phone] [facility] [place] [address] * COMPREHENSIVE METABOLIC PANEL (01/22/2025 8:01 AM CDT) GLUCOSE 96 65 - 99 mg/dL [facility] Comment: Fasting reference interval BUN 12 7 - 25 mg/dL [facility] CREATININE 0.70 0.50 - 0.99 mg/dL [facility] GFR 109 > OR = 60 mL/min/1. 73m2 [facility] BUN/CREAT RATIO SEE NOTE: 6 - 22 (calc) [facility] Comment: Not Reported: BUN and Creatinine are within reference range. SODIUM 138 135 - 146 mmol/L [facility] POTASSIUM 4.9 3.5 - 5.3 mmol/L [facility] CHLORIDE 104 98 - 110 mmol/L [facility] CO2 25 20 - 32 mmol/L [facility] CALCIUM 9.1 8.6 - 10.2 mg/dL [facility] TOTAL PROTEIN 6.2 6.1 - 8.1 g/dL [facility] ALBUMIN 3.7 3.6 - 5.1 g/dL [facility] GLOBULIN 2.5 1.9 - 3.7 g/dL (calc) [facility] ALBUMIN/GLOBULIN RATIO 1.5 1.0 - 2.5 (calc) [facility] BILIRUBIN TOTAL 0.4 0.2 - 1.2 mg/dL [facility] ALKALINE PHOSPHATASE 43 31 - 125 U/L [facility] AST 18 10 - 35 U/L [facility] ALT 12 6 - 29 U/L [facility] Comment: Test Performed at: [facility] [address] Ana Garcia MD Blood 01/22/2025 8:01 AM CDT 01/23/2025 4:42 AM CDT us Reshma Dunbar [facility] CHEMISTR[facility] ORDERABLES Final R esult [facility] [phone] [facility] [address] * MICROALBUMIN/CREATININE RATIO, RANDOM UR (10/11/2024 7:56 AM CDT) CREATININE, URINE 184 20 - 275 mg/dL [facility] ALBUMIN, URINE 0.5 See Note: mg/dL [facility] Comment: Reference Range: Reference Range Not established ALB/CREAT RATIO, URINE 3 <30 mg/g creat [facility] Comment: The ADA defines abnormalities in albumin excretion as follows: Albuminuria Category Result (mg/g creatinine) Normal to Mildly increased <30 Moderately increased 30-299 Severely increased > OR = 300 The ADA recommends that at least two of three specimens collected within a 3-6 month period be abnormal before considering a patient to be within a diagnostic category. Test Performed at: [facility] [address] [facility] [place] [address] Ana Garcia MD Urine URINE SPECIMEN OBTAINED BY CLEAN CATCH PROCEDURE / Unknown 10/11/2024 7:56 AM CDT 10/12/2024 9:07 AM CDT Reshma Hamm Manjinder ANP URINE ORDERABLES Final Resul t [facility] [phone] [facility] [address] [address] [facility] [address] * MAMMO SCREENING BILAT (05/08/2021) Anatomical Region Laterality Modality Breast Bilateral Mammography Gilda Schneider MD MAMMO ORDERABLES Edited R esult - Final from Last 3 Months or Most Recently Relevant to Health Maintenance Insurance [employer] ALLEGIANCE OPEN ACCESS ALLEGIANCE OPEN ACCESS * Guarantor: [employer] Account Type Relation to Patient Date of Phone Billing Address Corporate Employer ATTN: CARIE POLANCO [address] [address] Advance Directives For more information, please contact: [phone] * Full Code (Latest Code Status on File) Date Activated Date Inactivated Comments 06/05/2018 12:34 PM 06/06/2018 7:49 PM * Full Code Date Activated Date Inactivated Comments 06/05/2018 11:20 AM 06/05/2018 12:34 PM * Full Code Date Activated Date Inactivated Comments 04/25/2018 9:47 AM 04/25/2018 12:58 PM Care Teams Market Risk Manager Relationship Specialty Start Date End Date Cherry Cornejo MD [address] [place] [address] [place] [address] PCP - General Internal Medicine 12/13/23
--- NOTE | 2025-04-01 07:51 | WPDHPUPDATE1 ---
History and Physical Update Update Date/Time: 04/01/25 07:51 History and Physical has been reviewed, including an updated exam of the patient. There are NO changes in the patient's condition. Risks, benefits, and alternatives have been discussed and questions answered. Patient agrees to proceed with procedure.
--- NOTE | 2025-04-01 07:51 | PM.HPGS ---
History of Present Illness History of Present Illness Consent: Risks, benefits, and alternatives have been discussed and questions answered. Patient agrees to proceed with procedure. Chief complaint: Menorrhagia Narrative: Khanh Winston is a 44 year old female with menorrhagia. D&C hysteroscopy was benign. Patient has elected to proceed with Xochitl endometrial ablation for treatment. Risks of infection, bleeding, perforation, and device failure are discussed. Success of the ablation was also reviewed. Patient voices understanding and agrees to proceed. 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 Social History Social History Smoking status: Never smoker Substance use type: does not use Living arrangements: with family Spiritual care concerns: No Meds Home Medications and Allergies Home Medications ?Medication ?Instructions ?Recorded ?Confirmed ?Type alprazolam 0.25 mg tablet 0.25 mg PO DAILY 08/13/22 03/19/25 History bupropion HCl 300 mg 24 hr tablet, 300 mg PO DAILY 08/13/22 03/19/25 History extended release ferrous sulfate 325 mg (65 mg 325 mg PO DAILY 08/13/22 03/19/25 History iron) tablet (FeroSul) metformin 500 mg tablet,extended 500 mg PO DAILY 08/13/22 03/19/25 History release 24 hr atorvastatin 20 mg tablet 20 mg PO HS 02/07/25 03/19/25 History multivitamin (Daily Multi-Vitamin 1 tablet PO DAILY 02/07/25 03/19/25 History tablet) tirzepatide 5 mg/0.5 mL 5 mg subcut WEEKLY 03/19/25 03/19/25 History subcutaneous pen injector (Mounjaro) Allergies Allergy/AdvReac Type Severity Reaction Status Date / Time doxycycline Allergy Rash Verified 03/19/25 17:34 Tetracyclines Allergy Hives Verified 03/19/25 17:34 Exam Const: General: healthy appearing and alert Orientation/consciousness: patient oriented x3 Resp: Effort & Inspection: normal respiratory effort : External Female Exam: normal external appearance Speculum Exam - Vagina: normal appearance of the vagina and normal vaginal discharge Speculum Exam - Cervix: normal appearance of the cervix Bimanual exam- vagina & uterus: uterine size normal and consistency normal Bimanual Exam- Adnexa, other: normal adnexae and No adnexal tenderness Neuro: General: patient oriented x3 Assessment and Plan Assessment and plan (1) Menorrhagia: Code(s): N92.0 - Excessive and frequent menstruation with regular cycle Status: Acute Assessment and Plan: Plan to proceed with Xochitl endometrial ablation
[2025-04-01 08:30] VITALS: BP 122/65; PULSE 78; RESP 16; TEMP 36.6; O2SAT 99
[2025-04-01] MEDS: LACTATED RINGERS 1,000 ML 30 ML IV CONT (08:30)
[2025-04-01] MEDS: ACETAMINOPHEN 500 MG TABLET 1000 MG PO (08:30)
--- NOTE | 2025-04-01 09:00 | WPDANESEPPF ---
Anes - Initial Pre Proc Eval Procedure: Operation Date: 04/01/25 09:45 Proposed Procedures p Hysteroscopy Dilation and Curettage with Xochitl Endometrial Ablation - Gilda Schneider MD Date/Time: 04/01/25 09:00 Surgeon: Gilda Schneider MD Pre Op Diagnosis: Menorrhagia Patient Data Age: 44 Gender: F Height: 1.6 m Weight: 100 kg Allergies Allergy/AdvReac Type Severity Reaction Status Date / Time doxycycline Allergy Rash Verified 03/19/25 17:34 Tetracyclines Allergy Hives Verified 03/19/25 17:34 Home Medications ?Medication ?Instructions ?Recorded ?Confirmed ?Type alprazolam 0.25 mg tablet 0.25 mg PO DAILY 08/13/22 03/19/25 History bupropion HCl 300 mg 24 hr tablet, 300 mg PO DAILY 08/13/22 03/19/25 History extended release ferrous sulfate 325 mg (65 mg 325 mg PO DAILY 08/13/22 03/19/25 History iron) tablet (FeroSul) metformin 500 mg tablet,extended 500 mg PO DAILY 08/13/22 03/19/25 History release 24 hr atorvastatin 20 mg tablet 20 mg PO HS 02/07/25 03/19/25 History multivitamin (Daily Multi-Vitamin 1 tablet PO DAILY 02/07/25 03/19/25 History tablet) tirzepatide 5 mg/0.5 mL 5 mg subcut WEEKLY 03/19/25 03/19/25 History subcutaneous pen injector (Mounjaro) Laboratory Tests 04/01/25 08:18 POC Capillary Glucose 97 mg/dl (65-105) Patient hx anesthesia problems: none Family hx anesthesia problems: none Results Review: All pre-operative results and documents have been reviewed as part of the pre-operative evaluation. [facility] Past Medical History Medical History (Updated 02/18/25 @ 07:32 by Gilda Schneider MD) Borderline diabetes History of depression Surgical History Surgical History (Updated 04/01/25 @ 07:53 by Gilda Schneider MD) History of hysteroscopy January 2025 History of x2 Status post cholecystectomy H/O gastric bypass 2018 gastric sleeve Social History Social History Smoking status: Never smoker Substance use type: does not use Living arrangements: with family Spiritual care concerns: No Anes - Eval Final PreProcedure Day of Procedure 04/01/25 09:00 Patient weight: obese Heart: regular rate and rhythm Lungs: clear to auscultation Airway: Mallampati scale class II Neurological: alert and oriented Last oral intake: >/= 8 hours ASA classification: III Emergent: no Anesthetic plan: proceed Anesthesia type and monitoring: general GIVS and standard monitoring Results Review: All pre-operative results and documents have been reviewed as part of the pre-operative evaluation. Informed Consent: The patient's anesthetic plan and its attendant risks and benefits were discussed with the patient/family/POA. Questions were solicited and answers provided to the satisfaction of the patient/family/POA.
[2025-04-01 09:18] LABS: BEDSIDEPREGUCG Negative (Negative)
[2025-04-01] MEDS: LIDOCAINE 1% LOCAL INJ 10 ML VIAL INFILTRATE (10:03)
[2025-04-01 10:33] VITALS: BP 98/51; PULSE 77; RESP 18; O2SAT 100
--- NOTE | 2025-04-01 10:33 | W.PM.PROC2 ---
Procedure Note - Detailed Date of Procedure 04/01/25 Pre-op Diagnosis Menorrhagia Post-op Diagnosis Same Procedure Performed Xochitl endometrial ablation with hysteroscopy Surgeon Gilda Schneider MD Anesthesia MAC and Local Findings The uterus sounds to 11cm however the cervix is very long soundings to 6cm. The endometrium appears grossly normal. Description of Procedure The patient is taken to the operating room placed under anesthesia in the dorsal lithotomy position. She was prepped and draped in the usual sterile fashion. [place] speculum was placed in the vagina and the cervix grasped on the anterior lip with a tenaculum. The cervix was injected in each quadrant with 1% lidocaine. 10cc total was used. The uterus is sounded to 11cm however the cervix is at 6cm. The hysteroscope was then placed with normal findings the hysteroscope was removed. The cervix was serially dilated to an 8 Hegar. The Xochitl device was opened and placed and set at 5cm. The cavity assessment passed on the 1st attempt. The ablation proceeded for the full 2minutes. The Xochitl device was removed and the hysteroscope replaced with good ablation effect noted in the endometrium. All instruments were then removed. Sponge, needle, and instrument counts are correct per the OR staff. The patient was awakened from anesthesia and taken to recovery in stable condition. Estimated Blood Loss 5 Drains No Packing No Pathology None sent Complications No immediate complications Condition Stable Disposition PACU
[2025-04-01 11:00] VITALS: BP 99/55; PULSE 69; O2SAT 97
[2025-04-01 11:30] VITALS: BP 115/63; PULSE 66
[2025-04-01] MEDS: oxyCODONE HCL (*CRX) 5 MG TAB IR PO (11:30)
[2025-04-01 11:45] VITALS: BP 116/91; PULSE 66
== END 2025-04-01 12:01 | disposition home or self-care (01) ==
PROVIDERS: Visit Provider Obstetrics & Gynecology Gynecology
PROC: 0U5B8ZZ Destruction of Endometrium, Via Natural or Artificial Opening Endoscopic (ICD-10-PCS; CPT 58563; principal; 2025-04-01 09:45)
DX: N92.0 Excessive and frequent menstruation with regular cycle (principal); E11.9 Type 2 diabetes mellitus without complications; F32.A Depression, unspecified; E66.9 Obesity, unspecified; Z68.41 Body mass index [BMI] 40.0-44.9, adult; Z79.84 Long term (current) use of oral hypoglycemic drugs; Z79.85 Long-term (current) use of injectable non-insulin antidiabetic drugs; Z98.890 Other specified postprocedural states; Z90.49 Acquired absence of other specified parts of digestive tract; Z98.84 Bariatric surgery status
CPT/HCPCS: 58563; 82948; A9270; J1885; J2003; J2250; J2704; J3010; J7120